=== PATIENT | male | born 1975 | race Caucasian/White ===

== ENCOUNTER 2022-03-31 08:55 | Inpatient (IN) | payer OTHER, SELFPAY ==
[2022-03-31] VITALS (19 sets, daily range): BP systolic 96–159; BP diastolic 66–103; PULSE 62–110; RESP 16–18; TEMP 36.3–36.8; O2SAT 96–100; BMI 32.4; BMI 32.3
--- NOTE | 2022-03-31 09:42 | EKG12_ITS ---
Test Reason : GEN ILLNESS Blood Pressure : / mmHG Vent. Rate : 074 BPM Atrial Rate : 074 BPM P-R Int : 178 ms QRS Dur : 084 ms QT Int : 390 ms P-R-T Axes : 058 030 104 degrees QTc Int : 432 ms Sinus rhythm with marked sinus arrhythmia ST & T wave abnormality, consider lateral ischemia Abnormal ECG Confirmed by HAIDER DOWD, KAELA ([id number]), desk editor MAXI SIMMONS ([id number]) on 04/03/2022 10:03:43 A M Referred By: LUCIE Confirmed By:STNALEY MALONEY MD
--- NOTE | 2022-03-31 09:55 | RAD_ITS ---
STUDY: X-RAY CHEST REASON FOR EXAM: Male, 47 years old. Chest pain TECHNIQUE: Single AP portable view of the chest. COMPARISON: None. FINDINGS: EKG electrodes are seen. The lungs are clear and expanded. There is no demonstrated pleural abnormality. Normal size heart. Normal mediastinum and elsa. Normal visualized pulmonary arteries. Normal visualized aortic arch and descending thoracic aorta. Normal visualized thoracic spine. Normal visualized ribs, clavicles, and shoulders. There is no demonstrated abnormality of the visualized soft tissue structures of the upper abdomen. RAD/Chest 1 View (Portable) IMPRESSION: Normal x-ray examination of the chest. Electronically Signed: Morgan Oliva MD at 10:09 EDT ,
[2022-03-31 10:03] LABS: Absolute Lymphocyte Count 0.82 X10^3/uL (0.83-4.51); Absolute Neutrophil Count 5.5 X10^3/uL (2.0-7.7); Basophil# 0.04 X10^3/uL; Basophil% 0.6 % (0-1); Eosinophil# 0.09 X10^3/uL; Eosinophils% 1.3 % (0-5); Hematocrit 45.7 % (40-54); Hemoglobin 15.5 g/dL (13.0-16.5); Lymphocyte # 0.82 X10^3/ul (0.83-4.51); Lymphocyte % 11.9 % (19-41); Mean Corp Hgb Conc 33.9 g/dL (32-36); Mean Corpuscular Hgb 28.8 pg (27.0-32.0); Mean Corpuscular Volume 84.9 fL (80-94); Mean Platelet Vol. 10.2 fl (6.2-12.0); Monocyte# 0.39 X10^3/uL; Monocyte% 5.7 % (0-10); NRBC Flagged by Analyzer 0 % (0-5); Neutrophil % 80.1 % (47-70); Platelet Count 196 K/mm3 (150-450); RBC Distribution Width CV 13.2 % (11.6-14.6); Red Blood Count 5.38 M/mm3 (4.6-6.2); White Blood Count 6.9 K/mm3 (4.4-11.0)
[2022-03-31 10:20] LABS: Anion Gap 6 (5-15); BUN 12 mg/dL (7-18); BUN/Creat Ratio 13.3 RATIO (10-20); Calcium,Total 8.8 mg/dL (8.5-10.1); Chloride 106 mmol/L (98-107); EST Glomerular Filtration Rate 96 mL/min (>60); Est Glom Filt Rate - Afr Amer 116 mL/min (>60); Estimated Creatinine Clearance 111.37 ml/min; Glucose 122 mg/dL (74-106); Potassium 3.6 mmol/L (3.5-5.1); Sodium Level 138 mmol/L (136-145); Troponin-I HS (w/2H Reflex) 402 pg/mL (3.0-78.0)
--- NOTE | 2022-03-31 10:29 | PCM.HP.STD ---
[facility] - General General Date of Admission: 03/31/22 Date of Service: 03/31/22 Chief Complaint: Bilateral jaw pain HPI Narrative ELISABETH AGOSTO, is a 47 M who presents bilateral jaw pain. Patient past medical history is significant for hypertension chronic degenerative joint disease involving the TN joint, dyslipidemia and tobacco dependence (patient chews) who presented with jaw pain. Patient symptoms began on the morning of his admission. In addition to jaw pain he did experience chest discomfort as well as bilateral lower extremity pain. He initially felt symptoms were secondary to his TM joint osteoarthritis however in view of the persistent nature of his symptoms he presented to the ED. In the emergency department EKG obtained did not demonstrate ischemia in the lateral leads. His first set of troponin came back with 402. An assessment of acute non-STEMI made started on heparin with consultation placed to cardiology from the ED and patient admitted to monitored bed for subsequent management [facility] Medical History (Updated 03/31/22 @ 11:[address] Sancho Ovalles MD) Hypertension Home Medications lisinopril 20 mg PO DAILY 08/10/15 [History Last Taken Unknown] pravastatin 80 mg PO DAILY 08/10/15 [History Last Taken Unknown] amlodipine 5 mg PO DAILY 03/31/22 [History Last Taken Unknown] Allergy/AdvReac Type Severity Reaction Status Date / Time No Known Allergies Allergy Verified 01/14/16 21:18 Family History (Updated 03/31/22 @ 11:[address] Sancho Ovalles MD) Father CAD (coronary artery disease) Social History Smoking Status: Never smoker ROS ROS Narrative GENERAL: denies fever, chills, night sweats, weight loss, anorexia HEENT: denies headache, sinus congestion, or drainage, dysphagia RESPIRATORY: denies cough, sputum production, shortness of breath, CARDIAC: chest pain, palpitations, orthopnea, PND GASTROINTESTINAL: denies abdominal pain, nausea, vomiting, melena, GENITOURINARY: denies dysuria, urgency, frequency, heamaturia EXTREMITY: denies swelling MUSCULOSKELETAL: denies current joint pain or tenderness NEUROLOGIC: denies focal numbness, weakness, tingling HEMATOLOGIC: denies easy bruising and/or hemorrhage INTEGUMENT: denies rashes PSYCHIATRIC: denies suicidal or homicidal ideation Vital Signs Vital Signs Vital Signs: 03/31/22 08:55 03/31/22 09:25 03/31/22 09:49 Temperature 97.8 F Temperature Source Temporal Pulse Rate 89 Respiratory Rate 16 Respiratory Effort Normal Non-Labored Blood Pressure 159/103 H Blood Pressure Mean 121 Pulse Ox 97 100 Oxygen Delivery Method Room Air Room Air Weight Weight: 108.409 kg Body Mass Index (BMI) 32.4 Physical Exam Narrative GENERAL: cooperative HEENT: Atraumatic; EYES; Anicteric, Normal Conjunctiva NECK; supple, normal thyroid, RESPIRATORY: Diminished to auscultation CARDIOVASCULAR: Regular S1 S2, GI: soft, normoactive bowel sounds, : No Renal angle tenderness; EXTREMITIES: No edema, no clubbing, MUSCULOSKELETAL: no muscle wasting NEURO: Awake; no lateralizing signs. SKIN: No Rash PSYCH; Flat affect Results Lab / Micro Data Result Diagrams: 03/31/22 09:50 03/31/22 09:50 Labs: Laboratory Results - last 24 hr 03/31/22 09:50: WBC 6.9, RBC 5.38, Hgb 15.5, Hct 45.7, MCV 84.9, MCH 28.8, MCHC 33.9, RDW Std Deviation 41.0, RDW Coeff of Nadege 13.2, Plt Count 196, MPV 10.2, Immature Gran % (Auto) 0.400, Neut % (Auto) 80.1 H, Lymph % (Auto) 11.9 L, [place] % (Auto) 5.7, Eos % (Auto) 1.3, Baso % (Auto) 0.6, Absolute Neuts (auto) 5.5, Absolute Lymphs (auto) 0.82 L, Nucleated RBC % 0 03/31/22 09:50: Sodium 138, Potassium 3.6, Chloride 106, Carbon Dioxide 26.0, Anion Gap 6, BUN 12, Creatinine 0.90, Estim Creat Clear Calc 111.37, Est GFR (MDRD) Af Amer 116, Est GFR (MDRD) Non-Af 96, BUN/Creatinine Ratio 13.3, Glucose 122 H, Calcium 8.8, Troponin I High Sens 402 H* Radiology Impression Chest X-Ray 03/31/22 09:55 IMPRESSION: Normal x-ray examination of the chest. Electronically Signed: Morgan Oliva MD at 10:09 EDT , Assessment & Plan Assessment/Plan (1) NSTEMI, initial episode of care: PLAN: Patient is a 47-year-old gentleman presenting with bilateral jaw pain had elevated troponin consistent with acute non-STEMI 1. Acute non-STEMI ? Patient has been admitted to a monitored bed treatment initiated with beta-blockers aspirin statin therapy as well as heparin. Cardiology Dr. Vazquez was notified by Dr. Schulte from the ED. Plan is for patient to be kept n.p.o. with possible left heart catheterization later this afternoon. In the meantime serial cardiac enzymes ordered for monitoring. Repeat EKG also ordered in 3 hours. Also ordered 2D echo to assess for regional wall motion abnormalities 2. Hypertension - Blood pressure blood pressure on admission was elevated at 159/103. Did continue with home meds with and added metoprolol 25 mg p.o. twice daily subsequent monitoring with every 6 vitals ordered 3. Dyslipidemia -Patient is on statin therapy, continued 4. Class I obesity with BMI of 32.4 ? Weight loss advised 5. Tobacco dependence (patient chews) -patient was counseled on cessation 6. DVT prophylaxis ? Placed on heparin Charges/Coding Visit Charges Inpatient E&M: 81511 Init Hosp L3
--- NOTE | 2022-03-31 10:36 | ECHOCS_ITS ---
Reason For Study: s/p OR Procedure This was a 2D Doppler, Color Flow transthoracic echocardiogram. Contrast injection was performed. Exam performed portable in ED. Left Ventricle Normal LV size. The estimated ejection fraction is 60 %. No evidence for diastolic dysfunction. Infero-Basal: Hypokinetic. Right Ventricle Normal RV size. Normal systolic function. Atria Normal left atrium. Normal right atrium. No doppler evidence for ASD. Mitral Valve There is no mitral valve stenosis. Trivial mitral valve insufficiency. Tricuspid Valve There is no tricuspid stenosis. Trivial tricuspid valve insufficiency. Pulmonary artery systolic pressure is 25-30 mmHg. Aortic Valve Trisinus/trileaflet aortic valve. There is no aortic stenosis. No aortic valve insufficiency. Pulmonic Valve There is no pulmonic valvular stenosis. No pulmonic valve insufficiency. Great Vessels Normal aortic root. Pericardium/Pleural No pericardial effusion. Medication Diluted definity 3ml given slow IV push to enhance endocardial definition. MMode/2D Measurements & Calculations LVIDd: 4.8 cm IVSd: 1.2 cm Ao root diam: 3.0 cm LVIDs: 3.1 cm LVPWd: 1.3 cm RVDd: 3.5 cm FS: 34.7 % LAV(MOD-bp): 43.5 ml LVAd ap4: 27.8 cm2 SV(MOD-sp4): 49.7 ml LAV(MOD-bp) Indexed: 18.9 ml/m2 LVLd ap4: 8.6 cm LAV(MOD-sp2): 42.2 ml EDV(MOD-sp4): 74.7 ml LAV(MOD-sp4): 43.0 ml EDV(sp4-el): 76.8 ml LVAs ap4: 14.2 cm2 LVLs ap4: 6.8 cm ESV(MOD-sp4): 25.0 ml ESV(sp4-el): 25.3 ml EF(MOD-sp4): 66.6 % EF(sp4-el): 67.1 % SV(sp4-el): 51.5 ml LA A4 area: 17.9 cm2 LA dimension(2D): 3.9 cm RA A4 area: 13.6 cm2 Doppler Measurements & Calculations MV E max jose alfredo: 78.9 cm/sec Lat Peak E' Jose Alfrdeo: 11.6 cm/sec Med Peak E' Jose Alfredo: 9.0 cm/sec MV A max jose alfredo: 85.7 cm/sec E/E' lat: 6.8 E/E' med: 8.7 MV E/A: 0.92 Ao V2 max: 118.5 cm/sec LV V1 max: 104.0 cm/sec PA V2 max: 102.7 cm/sec Ao max P.6 mmHg LV V1 max P.3 mmHg Ao V2 mean: 84.0 cm/sec Ao mean P.1 mmHg Ao V2 VTI: 21.3 cm TR max jose alfredo: 243.1 cm/sec TR max P.6 mmHg ECHO/Echo Complete W/ Contrast Interpretation Summary The estimated ejection fraction is 60 %. No evidence for diastolic dysfunction. Infero-Basal: Hypokinetic Trivial mitral valve insufficiency. Ordering Physician: Sancho Ovalles Referring Physician: Ayanna Lentz Performed By: Kirsty Melvin, JOVANNA, RVT
--- NOTE | 2022-03-31 10:45 | PCM.CONS.C ---
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 Patient is chest pain-free at the end of the procedure. We will keep him on aspirin, Brilinta, statin and a beta-kristina. 2D echo has been done and will be reviewed. Patient is being admitted to the PCU for further management of his non-STEMI. HPI Consult Data Date of Consult: 03/31/22 HPI Narrative HPI Narrative: ELISABETH AGOSTO, is a 47 M who presents with jaw pain and chest pain. Patient's troponin was elevated. His jaw pain improved with nitroglycerin as well. Patient was diagnosed with non-STEMI and underwent coronary angiography which revealed 100% occlusion of the RCA. Review of systems: All systems reviewed. All else is negative except that in HPI PFSH Medical History Hypertension Home Medications lisinopril 20 mg PO DAILY 08/10/15 [History Last Taken Unknown] pravastatin 80 mg PO DAILY 08/10/15 [History Last Taken Unknown] amlodipine 5 mg PO DAILY 03/31/22 [History Last Taken Unknown] Allergy/AdvReac Type Severity Reaction Status Date / Time No Known Allergies Allergy Verified 01/14/16 21:18 Family History Father CAD (coronary artery disease) Social History Smoking Status: Never smoker Physical Exam Const alert and oriented x3 Orientation / Consciousness: awake HEENT normocephalic Eyes no scleral icterus Resp normal respiratory effort Cardio regular rate Skin no rashes or lesions noted Neuro oriented x3 Psych mental status grossly normal Risk Stratification Risk Stratification Applicable: No Charges/Coding Visit Charges Inpatient E&M: 77766 Init Hosp L2 Objective Data Vital Signs: Vital Signs Temp Pulse Resp BP Pulse Ox 97.8 F 89 16 159/103 H 100 03/31/22 08:55 03/31/22 08:55 03/31/22 08:55 03/31/22 08:55 03/31/22 09:49 Oxygen Delivery Method Room Air Weight: 239 lb Body Mass Index (BMI) 32.4 Lab / Micro Data Result Diagrams: 03/31/22 09:50 03/31/22 09:50 Labs: Laboratory Results - last 24 hr 03/31/22 09:50: WBC 6.9, RBC 5.38, Hgb 15.5, Hct 45.7, MCV 84.9, MCH 28.8, MCHC 33.9, RDW Std Deviation 41.0, RDW Coeff of Nadege 13.2, Plt Count 196, MPV 10.2, Immature Gran % (Auto) 0.400, Neut % (Auto) 80.1 H, Lymph % (Auto) 11.9 L, [place] % (Auto) 5.7, Eos % (Auto) 1.3, Baso % (Auto) 0.6, Absolute Neuts (auto) 5.5, Absolute Lymphs (auto) 0.82 L, Nucleated RBC % 0 03/31/22 09:50: Sodium 138, Potassium 3.6, Chloride 106, Carbon Dioxide 26.0, Anion Gap 6, BUN 12, Creatinine 0.90, Estim Creat Clear Calc 111.37, Est GFR (MDRD) Af Amer 116, Est GFR (MDRD) Non-Af 96, BUN/Creatinine Ratio 13.3, Glucose 122 H, Calcium 8.8, Troponin I High Sens 402 H* Cardiology Labs/Tests 03/31/22 09:50: WBC 6.9, RBC 5.38, Hgb 15.5, Hct 45.7, MCV 84.9, MCH 28.8, MCHC 33.9, Plt Count 196, MPV 10.2, Immature Gran % (Auto) 0.400, Neut % (Auto) 80.1 H, Lymph % (Auto) 11.9 L, [place] % (Auto) 5.7, Eos % (Auto) 1.3, Baso % (Auto) 0.6, Absolute Neuts (auto) 5.5, Nucleated RBC % 0 03/31/22 09:50: Sodium 138, Potassium 3.6, Chloride 106, Carbon Dioxide 26.0, Anion Gap 6, BUN 12, Creatinine 0.90, Est GFR (MDRD) Af Amer 116, Est GFR (MDRD) Non-Af 96, BUN/Creatinine Ratio 13.3, Glucose 122 H, Calcium 8.8 Rhythm: EKG: ECHO: Stress Test: Cardiac Cath: PCI: CT Surgery: Holter monitor: EPS: PPM: CXR: Chest CT Scan: Radiography Diagnostic Testing: Radiology Impression Chest X-Ray 03/31/22 09:55 IMPRESSION: Normal x-ray examination of the chest. Electronically Signed: Morgan Oliva MD at 10:09 EDT ,
[2022-03-31] MEDS: Aspirin 81 MG TAB.CHEW 324 MG PO (10:50)
--- NOTE | 2022-03-31 11:11 | ED.VIS.CHEST ---
HPI History of Present Illness Chief Complaint: General Illness Narrative Narrative: 47-year-old male presenting with chronic jaw pain. He states that he has TMJ and bruxism and typically has pain is controlled by ibuprofen. Last evening he noticed that he had some pain worsening his bilateral jaws. He took Motrin and this did improve. This morning he woke up and he is not sure if he woke up because his child had an accident in the bed or if it was his pain but he had exquisite pain in the jaw and then stated started radiating to his chest and bilateral arms. Now it is more in the left arm. The chest pain has resolved but the jaw pain is still present. He denies shortness of breath, lightheadedness. He has been otherwise healthy prior to this. He has a history of hypertension and hyperlipidemia. No cardiac history. No DVT/PE risk factors. [facility] Medical History Hypertension Home Medications lisinopril 20 mg PO DAILY 08/10/15 [History Last Taken Unknown] pravastatin 80 mg PO DAILY 08/10/15 [History Last Taken Unknown] amlodipine 5 mg PO DAILY 03/31/22 [History Last Taken Unknown] Allergy/AdvReac Type Severity Reaction Status Date / Time No Known Allergies Allergy Verified 01/14/16 21:18 Family History Father CAD (coronary artery disease) Social History Smoking Status: Never smoker [facility] ED Constitutional Constitutional ED: Denies chills, fever(s) or sweats Eyes Eyes: Denies blurry vision or change in vision ENT ENT ED: Reports other Details: Bilateral jaw pain ; Denies ear pain or sore throat Cardiovascular Cardiovascular: Reports chest pain; Denies palpitations or racing heartbeat Respiratory/Chest Respiratory/Chest: Denies cough, dyspnea or sputum Gastrointestinal Gastrointestinal: Denies abdominal pain, constipation, diarrhea, nausea or vomiting Genitourinary Genitourinary ED: Denies dysuria, hematuria or urinary frequency Musculoskeletal Musculoskeletal: Reports other Details: Bilateral arm pain ; Denies arthralgias or neck pain Integumentary Denies abscess, Abrasions or rash Neurologic Neurologic: Denies headache(s), paresthesias or weakness Psychiatric Psychiatric: Denies anxiety, depression, suicidal ideation or suicidal thoughts Endocrine Endocrinology: Denies polydipsia or polyuria EXAM Physical Exam Const Vital Signs: 03/31/22 08:55 03/31/22 09:25 03/31/22 09:49 Temperature 97.8 F Temperature Source Temporal Pulse Rate 89 Respiratory Rate 16 Respiratory Effort Normal Non-Labored Blood Pressure 159/103 H Blood Pressure Mean 121 Pulse Ox 97 100 Oxygen Delivery Method Room Air Room Air Positive well nourished General Appearance ED: NAD HEENT Reports moist mucous membranes HEENT Narrative: No tenderness over the temples bilaterally. No jaw malocclusion. No tenderness palpation of the bilateral angle of the mandible's. Neck supple without lymphadenopathy. normocephalic and atraumatic Eyes PERRL and EOMs intact bilaterally Neck no lymphadenopathy and supple Resp normal respiratory effort Effort and Inspection: respiratory distress Cardio regular rate and regular rhythm Extremity normal to inspection General Extremety ED: Negative for edema or tenderness General Extremity: Negative for edema Neuro oriented x3 Sensorium / Orientation: awake and alert Motor Exam: strength 5/5 throughout Psych mental status grossly normal Skin no rashes or lesions noted and no wounds Heart Score History: Moderately Suspicious ECG: Normal Age: >45 - <65 years Risk Factors: >/= 3 Risk Factors or History of CAD Troponin: >/=3 x Normal Limit Score: 6 MDM MDM MDM Narrative Medical decision making narrative: Patient presenting with jaw pain that he thought was his TMJ but states it radiated into his chest and he had discomfort in bilateral arms as well. Currently his chest pain is resolved but he still has jaw pain. He states he got better with ibuprofen this morning and declines anything for pain initially. I obtained an EKG and on my interpretation this was a sinus rhythm with a ventricular rate of 74 bpm with slight elevation of the ST wave in lead III and T wave inversion/mild depressions in 1 and aVL. This does not meet STEMI criteria. This was discussed with Dr. Vazquez who agrees. CBC and BMP unremarkable. High-sensitivity troponin came back at 402. Chest x-ray on my interpretation shows no acute cardiopulmonary process and the radiologist does agree. I discussed case with Dr. Vazquez who will likely do cardiac catheterization based on the EKG and cardiac enzymes at some point today. This was also discussed with the hospitalist for admission. Patient was given nitroglycerin for pain. 224 of aspirin was also given. Patient transferred to the floor in stable condition. Impression: 1. NSTEMI 2. Jaw pain 3. Chest pain Lab Data Labs: Laboratory Results - last 24 hr 03/31/22 03/31/22 09:50 09:50 WBC 6.9 RBC 5.38 Hgb 15.5 Hct 45.7 MCV 84.9 MCH 28.8 MCHC 33.9 RDW Std Deviation 41.0 RDW Coeff of Nadege 13.2 Plt Count 196 MPV 10.2 Immature Gran % (Auto) 0.400 Neut % (Auto) 80.1 H Lymph % (Auto) 11.9 L [place] % (Auto) 5.7 Eos % (Auto) 1.3 Baso % (Auto) 0.6 Absolute Neuts (auto) 5.5 Absolute Lymphs (auto) 0.82 L Nucleated RBC % 0 Sodium 138 Potassium 3.6 Chloride 106 Carbon Dioxide 26.0 Anion Gap 6 BUN 12 Creatinine 0.90 Estim Creat Clear Calc 111.37 Est GFR (MDRD) Af Amer 116 Est GFR (MDRD) Non-Af 96 BUN/Creatinine Ratio 13.3 Glucose 122 H Calcium 8.8 Troponin I High Sens 402 H* Radiography Diagnostic Testing: Clinical Impression(s) from Imaging Studies Chest X-Ray 03/31/22 09:55 IMPRESSION: Normal x-ray examination of the chest. Electronically Signed: Morgan Oliva MD at 10:09 EDT , Discharge Plan Triage Chief Complaint: General Illness ED Provider: Gamaliel Schulte Dx/Rx/DC Orders Prescriptions: No Action lisinopril 20 MG tablet 20 mg PO DAILY RF: 0 pravastatin 80 MG tablet 80 mg PO DAILY RF: 0 amlodipine 5 mg tablet 5 mg PO DAILY RF: 0 Primary Care Provider: Ayanna Lentz
--- NOTE | 2022-03-31 11:21 | CASEMGMT ---
According to the [employer] website, the following are in-network tertiary facilities: [facility], [place], [facility], [facility], [facility], [facility], [facility], [facility], [facility], and . Pete FARRIS CM
[2022-03-31] MEDS: Heparin Injection (Vial) 5,000 UNIT/ML VIAL 4000 UNIT IV (11:30)
[2022-03-31] MEDS: HEPARIN/D5w 25,000 UNITS 25,000 UNITS/250 ML IV.SOLN. 0.1 UNITS CONT INF (11:40)
[2022-03-31 11:49] LABS: International Normalized Ratio 1.2; Prothrombin Time (Protime)PT. 14.9 SECONDS (11.7-14.9)
[2022-03-31 11:50] LABS: Partial Thromboplast Time 32.4 Seconds (24.1-36.2)
[2022-03-31 11:54] LABS: Reflex Troponin-HS? (from REC) Y
--- NOTE | 2022-03-31 12:11 | NURSING ---
scanned heprain and badge. looked later and med not registering on jan. recharted. unable to scan at ths time.
--- NOTE | 2022-03-31 12:12 | ED.RN ---
education and updates givein. questions answered. to director of cath lab at this time
[2022-03-31 13:23] LABS: Troponin-I HS 3246 pg/mL (3.0-78.0)
--- NOTE | 2022-03-31 14:00 | EKG12_ITS ---
Test Reason : AM EKG Blood Pressure : / mmHG Vent. Rate : 074 BPM Atrial Rate : 074 BPM P-R Int : 184 ms QRS Dur : 090 ms QT Int : 396 ms P-R-T Axes : 063 -10 041 degrees QTc Int : 439 ms Normal sinus rhythm Inferior infarct , age undetermined Abnormal ECG When compared with ECG of 01-APR-2022 05:04, MANUAL COMPARISON REQUIRED, DATA IS UNCONFIRMED Confirmed by CAROLE DOWD, ANDREY ([id number]), editor book MAXI SIMMONS ([id number]) on 04/03/2022 12:55:07 PM Referred By: DALE Confirmed By:ANDREY LAM MD
[2022-03-31] MEDS: Lisinopril 20 MG Tablet PO (14:13)
[2022-03-31] MEDS: Metoprolol Tartrate 25 MG Tablet PO ×2 (14:13→21:39)
[2022-03-31] MEDS: amLODIPine 5 MG Tablet PO (14:13)
[2022-03-31] MEDS: 0.9% Normal Saline 1,000 ML 75 ML IV (14:17)
--- NOTE | 2022-03-31 14:36 | CRPHASE1_ITS ---
Patient Communication PHII Cardiac Rehab Discussed with Patient:: Yes Guide to Cardiac Rehab Given to Patient:: Yes Cardiac Rehab Facility Choice List Given to Patient:: Yes Choice Program [facility] CR PHII:: Communication Given to CR Choice Program Other:: Communication Given to CR Urologic Surgeon:: Kishore Vazquez Refer Phase II Cardiac Rehab:: Yes Cardiac Rehabilitation Info Cardiac Rehabilitation Program Information: Cardiac Rehabilitation is important for patients like you who are recovering from a heart problem. Cardiac rehabilitation programs are recognized as integral to the continued care of the patient with coronary heart disease. The cardiac rehabilitation program is designed to optimize a patient's physical, psychological, and social functioning. Health director of managed care work in cardiac rehabilitation programs and assist you with getting the treatments you need to get stronger and healthier - like exercise, healthy eating habits, and medications. Cardiac rehabilitation has been show to help people with heart problems live longer and have better life enjoyment than people who do not go to cardiac rehabilitation. Please contact the Cardiac Rehabilitation Program at [facility] at in two weeks if you have not heard from them.
--- NOTE | 2022-03-31 14:36 | CRPH1.INSTRU ---
General Education CAD and cardiac anatomy and function:: Patient communicates acknowledgment Explanation of diagnoses and procedures:: Patient communicates acknowledgment Sign/Symptoms of SD:: Patient communicates acknowledgment Antiplatelet therapy: Patient communicates acknowledgment Smoking Patient Nicotine/Smoking Risk Factors Are:: Non-smoker Dyslipidemia Patient Dyslipidemia Risk Factors Are:: Total Cholesterol, Triglycerides, HDL, LDL Recommendations Include:: Lipid profile provided, Reviewed NCEP/ATP guidelines, Therapeutic Lifestyle Change dietary guidelines Dyslipidemia Response Code:: Patient communicates acknowledgment Overweight/Obesity Patient Overweight/Obesity Risk Factors Are:: Obesity - > or = 30 Recommendations Include:: Weight loss of 5-10%, Reduced calorie diet, Exercise 5-7 times/week Overweight/Obesity:: Patient communicates acknowledgment Hypertension Recommendations Include:: Maintain BP <130/85, DASH dietary guidelines, Decrease/maintain normal body weight, Moderation of ETOH Hypertension:: Patient communicates acknowledgment Diabetes Patient Diabetes Risk Factors Are:: No documented hx of diabetes Metabolic Syndrome Patient Metabolic Syndrome Risk Factors Are [3 of 5]:: Fasting blood sugar > 100 mg/dL, Waist circumference > 35 [female] or 40 [male], High triglyceride >150, Hypertension, Low HDL <40 [male] or < 50 [female] Recommendations Include:: Reinforce compliance to risk factor modifications, Encouraged follow-up with Primary Care Physician Metabolic Syndrome Response Code:: Patient communicates acknowledgment Sedentary Patient Sedentary Risk Factors Are:: Lack of regular exercise Recommendations Include:: Aerobic exercise 5-7 times/week for 20-30 minutes continuously, Benefits of regular exercise, Discussed home walking program, Monitored Outpatient Cardiac Rehab Sedentary Response Code:: Patient communicates acknowledgment Stress Patient Stress Risk Factors Are:: Patient denies stress as a risk factor Recommendations Include:: Stress management techniques Stress Response Code:: Patient communicates acknowledgment
--- NOTE | 2022-03-31 14:50 | CL.I_ITS ---
Patient Name: ELISABETH AGOSTO Study Date: 03/31/2022 Performing: Torito Vazquez MD Ht: 72 inches 183 cm : 1975 Wt: 238.4 lbs 108 kg Age: 47 Gender: male BSA: 2.3 PROCEDURE(S) PERFORMED DC02-(83391)LHC/COR IC12-(42157/C9600)ISABELLE W/WO PTCA, SINGLE CORONARY ARTERY CLINICAL PROFILE AND CO-MORBIDITIES Indications: ACS <= 24 hrs Heart Failure: None Stress/Imaging Stress/Image Study Performed: No CAD Presentations: Non-STEMI. Symptom onset Date/Time: Time Not Available CONCLUSIONS CAD as described. Successful thrombectomy and drug-eluting stent placement to mid RCA as described. RECOMMENDATIONS DESCRIPTION OF PROCEDURE The patient arrived to the procedure lab. The risks and benefits of the procedure as well as a full d escription of our services here and lack of surgical backup were fully explained to the patient and/o r their significant other prior to the catheterization. The Timeout was completed, verifying the callum ect patient and procedure. The patient's procedural site was prepped and draped in the usual fashion. Local anesthetic was given subcutaneously to right radial region with Lidocaine 2%. Using a modified Seldinger technique, arterial access was obtained via the right radial artery, a 6Fr sheath was inse rted.. Right Coronary Artery selective angiography was then performed in multiple views using a 5 Fr . JR 4 catheterThe images were reviewed and options discussed. A decision was then made to proceed wi th an Intervention, IVUS or other adjunct procedure. JR 4.0 Guide catheter was inserted and engaged into the RCA. Priority One inserted Pass # 1 Prior ity One Removed Emerge 3.0x12 Balloon catheter was inserted. PTCA balloon inflated at 6 atms for 5 se cs. PTCA balloon inflated at 6 atms for 5 secs. PTCA balloon inflated at 10 atms for 17 secs. Angiogr am performed post balloon dilatation. Orsiro 3.5x26 Drug Eluting stent was inserted. Angiogram perfor med post stent deployment. The arterial sheath was pulled and a TR Band was applied for hemostasis w/ 9ml air CORONARY ANGIOGRAPHY DOMINANCE: Right Dominant LEFT HEART ASSESSMENT Left Ventricular Ejection Fraction: by Echo 60 % LEFT MAIN: Mild luminal irregularities LEFT ANTERIOR DESCENDING ARTERY: PROX LAD: 50-60 % Stenosis MID LAD: 30 % Stenosis CIRCUMFLEX ARTERY: Mild luminal irregularities RIGHT CORONARY ARTERY: MID RCA: 100 % Stenosis VALVE FINDINGS: No Aortic Valve Stenosis INTERVENTION INFORMATION LESION SITE: RCA (Mid) Lesion Complexity: High/C, chronic total occlusion: No, lesion at bifurcation: No, thrombus present: Yes, lesion length: 24 mm, culprit lesion: Yes, Previously treated lesion: No Pre Stenosis: 100 % Pre intervention MIKE flow: 0 PROCEDURE: Thrombectomy, Drug Eluting Stent with pre dilatation. Post Stenosis: 0 % Post intervention MIKE flow: 3 Lesion Devices: Garcia .014 BMW [place] Straight 190cm Medtronic 6 Fr JR4.0 100cm Guide Catheter Terumo Priority One Aspiration Catheter Fab Sci EMERGE MR 3.00x12 BALLOON Biotronik Orsiro Savage MR ISABELLE 3.5x26 COMPLICATIONS No Complications PROCEDURE MEDICATIONS Versed 1 mg IV Fentanyl 50 mcg IV Oxygen: 2 L/min via nasal cannula Brilinta 180 mg PO 03/31/2022 12:58:15 Atropine 1mg/10ml 0.5 amp @ 03/31/2022 13:09:12 Heparin given IA 03/31/2022 12:48:52 Nitro 100 mcg IC 03/31/2022 13:16:45 Verapamil 2.5mg, Ntg 100mcgs, 3000 units of Heparin given IA 03/31/2022 12:48:52 IV Bolus: .9 NaCl 400ml total 03/31/2022 13:06:41 SUMMARY OF HEMODYNAMIC DATA Time AIR REST ECG 12:28:08 LV 114/8, 9 12:51:33 LV 111/8, 9 12:51:41 LVp 113/9, 13 12:51:54 AOp 115/96 (107) 12:52:01 AO 116/87 (105) SA 12:52:17 AO 67/36 (45) 13:07:03 AO 90/66 (76) 13:14:45 Signed By Torito Vazquez MD On 03/31/2022 14:49:10 Torito Vazquez MD
--- NOTE | 2022-03-31 14:54 | CASEMGMT ---
BRENTON ANTUNEZ assessment: Face to Face with patient for initial transition planning/care coordination assessment. BRENTON ANTUNEZ introduced self and role at [facility], pt voices understanding and consents to assessment. Pt is sitting up in bed in no distress on room air. Pt is A/Ox4 and answers all questions appropriately. Pt's is at bedside during assessment. Care providers, pharmacy, and demographics verified. Presentation: Pt c/o pain to bilat jaw, arms and shoulder that started last night, persistent-pt states it woke him from sleep Admitting dx: NSTEMI PCP: Mary Carmen Specialists: None Preferred Pharmacy: [facility]-pt started on brilinta and provided Brilinta co-pay card with instructions Insurance: [employer] Prescription Benefit: C[employer]a Living Will/HPOA: Pt does not have LW/HPOA and declines AD info. LNOK: Mecca Ladd, Living Arrangements: Pt lives with in ranch home with finished basement and states no concerns at home. Pt is independent with ADL's. Transportation: Pt drives self and states no transportation concerns. DME/HHC: Pt states no DME at home or need for any DME. Pt states no hx of HHC or SNF. Pt states no concerns with going home at time of discharge. Pt is self-employed and works multimedia artist. Pt states does not smoke cigarettes and rarely drinks ETOH. Pt states no further concerns/needs. CM to follow for any further discharge planning/needs. Advised pt to ask for CM if any further questions/concerns/needs arise, voices understanding. Pt Goal: Home Plan: [place] BRENTON ANTUNEZ
[2022-03-31 19:56] LABS: Magnesium 2.2 mg/dL (1.6-2.6)
[2022-03-31] MEDS: TICAGRELOR 90 MG TABLET PO (21:35)
[2022-03-31] MEDS: Atorvastatin Calcium 80 MG Tablet PO (21:35)
[2022-03-31] MEDS: 0.9% Saline Lock 10 ML Syringe IV (21:39)
[2022-04-01] VITALS (18 sets, daily range): BP systolic 93–123; BP diastolic 65–89; PULSE 66–85; RESP 14–20; TEMP 36.8–37.1; O2SAT 95–100
[2022-04-01 06:36] LABS: Absolute Lymphocyte Count 1.68 X10^3/uL (0.83-4.51); Absolute Neutrophil Count 6.7 X10^3/uL (2.0-7.7); Basophil# 0.03 X10^3/uL; Basophil% 0.3 % (0-1); Eosinophil# 0.14 X10^3/uL; Eosinophils% 1.5 % (0-5); Hematocrit 40.4 % (40-54); Hemoglobin 13.3 g/dL (13.0-16.5); Lymphocyte # 1.68 X10^3/ul (0.83-4.51); Lymphocyte % 18.2 % (19-41); Mean Corp Hgb Conc 32.9 g/dL (32-36); Mean Corpuscular Hgb 28.3 pg (27.0-32.0); Mean Platelet Vol. 10.9 fl (6.2-12.0); Monocyte# 0.67 X10^3/uL; Monocyte% 7.3 % (0-10); NRBC Flagged by Analyzer 0 % (0-5); Neutrophil # 6.67 X10^3/uL (2.7-7.7); Neutrophil % 72.3 % (47-70); Platelet Count 206 K/mm3 (150-450); RBC Distribution Width CV 13.6 % (11.6-14.6); RBC Distribution Width SD 42.6 fl (35.1-43.9); White Blood Count 9.2 K/mm3 (4.4-11.0)
[2022-04-01 07:04] LABS: ALB/GLOB Ratio 0.9 RATIO (0.9-2.4); AST(SGOT) 285 U/L (15-37); Alanine Aminotransfer ALT/SGPT 58 U/L (16-61); Alkaline Phosphatase 60 U/L (45-117); Anion Gap 7 (5-15); BUN 15 mg/dL (7-18); BUN/Creat Ratio 13.9 RATIO (10-20); Calcium,Total 8.6 mg/dL (8.5-10.1); Chloride 111 mmol/L (98-107); Cholesterol 146 mg/dL (200); Creatinine, Serum 1.08 mg/dL (0.70-1.30); EST Glomerular Filtration Rate 78 mL/min (>60); Est Glom Filt Rate - Afr Amer 94 mL/min (>60); Estimated Creatinine Clearance 92.81 ml/min; Globulin 3.4 g/dL (2.2-4.2); Glucose 123 mg/dL (74-106); High Density Lipoprotein 35 mg/dL; Potassium 3.3 mmol/L (3.5-5.1); Protein, Total 6.4 g/dL (6.4-8.2); Sodium Level 142 mmol/L (136-145); Triglycerides 136 mg/dL; Very Low Density Lipoprotein 27 mg/dL (5-40)
--- NOTE | 2022-04-01 07:04 | PN.HOSP_ITS ---
Subjective Subjective Patient with no acute events per self overnight and denies any further chest discomfort or any dyspnea. On the monitor however patient has had notable VT runs including nearly 60 beat this a.m. although remained asymptomatic. Discussed concerns with patient and noted intention to initiate on amiodarone bolus and drip. Also relayed this to cardiology who was amenable and will evaluate today as well. Patient denies fevers, chills, nausea, emesis, abdominal pain, chest pain or dyspnea. Objective Data Objective Data Vital Signs: Vital Signs Temp Pulse Resp BP Pulse Ox 98.8 F 67 18 95/65 98 04/01/22 04:00 04/01/22 04:00 04/01/22 04:00 04/01/22 04:00 04/01/22 04:00 Oxygen Delivery Method Room Air Weight: 238 lb 15.697 oz Body Mass Index (BMI) 32.3 Intake & Output: Intake and Output for Last 24 Hours 03/30/22 03/31/22 04/01/22 23:59 23:59 23:59 Intake Total 654.48 / 654.48 Balance 654.48 / 654.48 Lab / Micro Data Result Diagrams: 04/01/22 05:52 04/01/22 05:52 Labs: Laboratory Results - last 24 hr 03/31/22 09:50: WBC 6.9, RBC 5.38, Hgb 15.5, Hct 45.7, MCV 84.9, MCH 28.8, MCHC 33.9, RDW Std Deviation 41.0, RDW Coeff of Nadege 13.2, Plt Count 196, MPV 10.2, Immature Gran % (Auto) 0.400, Neut % (Auto) 80.1 H, Lymph % (Auto) 11.9 L, [place] % (Auto) 5.7, Eos % (Auto) 1.3, Baso % (Auto) 0.6, Absolute Neuts (auto) 5.5, Absolute Lymphs (auto) 0.82 L, Nucleated RBC % 0 03/31/22 09:50: Sodium 138, Potassium 3.6, Chloride 106, Carbon Dioxide 26.0, Anion Gap 6, BUN 12, Creatinine 0.90, Estim Creat Clear Calc 111.37, Est GFR (M DRD) Af Amer 116, Est GFR (MDRD) Non-Af 96, BUN/Creatinine Ratio 13.3, Glucose 122 H, Calcium 8.8, Troponin I High Sens 402 H* 03/31/22 09:50: PT 14.9, INR 1.2, APTT 32.4 03/31/22 12:47: Troponin I High Sens 3246 H* 03/31/22 12:47: Magnesium 2.2 04/01/22 05:52: WBC 9.2, RBC 4.70, Hgb 13.3, Hct 40.4, MCV 86.0, MCH 28.3, MCHC 32.9, RDW Std Deviation 42.6, RDW Coeff of Nadege 13.6, Plt Count 206, MPV 10.9, Immature Gran % (Auto) 0.400, Neut % (Auto) 72.3 H, Lymph % (Auto) 18.2 L, [place] % (Auto) 7.3, Eos % (Auto) 1.5, Baso % (Auto) 0.3, Absolute Neuts (auto) 6.7, Absolute Lymphs (auto) 1.68, Nucleated RBC % 0 Radiography Diagnostic Testing: Radiology Impression Chest X-Ray 03/31/22 09:55 IMPRESSION: Normal x-ray examination of the chest. Electronically Signed: Morgan Oliva MD at 10:09 EDT , Echocardiogram 03/31/22 10:36 Interpretation Summary The estimated ejection fraction is 60 %. No evidence for diastolic dysfunction. Infero-Basal: Hypokinetic Trivial mitral valve insufficiency. Ordering Physician: Sancho Ovalles Referring Physician: Ayanna Lentz Performed By: Kirsty Melvin, ANGELICACS, RVT Physical Exam Narrative Physical Examination: General: Awake, alert, oriented x 3 and cooperative, laying in the PCU bed, mildly fatigued otherwise denies any acute complaints, denies any recurrent chest discomfort Skin: Normal color, normal turgor, no icterus, no cyanosis. HEENT: AT/NC, EOMI, PERRLA, MMM. Lungs: CTA bilaterally, moderate effort, mild decrease BL bases, no rales, ronchi or wheezing. Heart: Currently regular rate and rhythm; no gallop, rub audible. Abdomen: Soft, obese, NTTP, ND, mildly hyperactive BS. Extremities: No cyanosis, clubbing, or edema. Neurological: Patient awake, alert, oriented as noted, cognitive function intact; pupils equally reactive to light and accommodation, cranial nerves II- XII grossly normal, moving all 4 extremities, no focal deficits, strength im proved, preserved. Psychiatric: Affect appears fatigued otherwise normal, no acute evidence of depressive or anxiety feelings. Assessment & Plan Assessment/Plan (1) NSTEMI, initial episode of care: PLAN: The patient is a 47 y/o M w/ PMHx: HTN, HLD, Obesity, Chew tobacco who presents to the [facility] ED on 03/31/22 with history of onset bilateral jaw discomfort in addition to chest discomfort with initially onset of discomfort in the TM joints however it persisted with eventual transition to his midsternal re gion prompting ED evaluation. #1. Chest Pain w/ Acute NSTEMI complicated by #2: EKG in ED w/ sinus rhythm with no acute evidence of ischemia, CXR w/ no acute cardiopulmonary finding, initial troponin 402. Patient admitted to the PCU, maintain on a monitored bed, serial enzymes obtained with initial 402--> 3246-->[], ECHO w/ EF 60%, no evidence of diastolic dysfunction, inferior basal hypokinesis, trivial MVI, Mag 2.2. Cardiology consulted and patient underwent 03/31/2022 cardiac catheterizatio n with noted coronary disease with successful thrombectomy and drug-eluting stent placement to the mid RCA. Continue medical management w/ asa, Brilinta, BB, statin per cardiology direction. #2. NSVT: Although patient did eventually return to sinus rhythm had significant bursts, will initiate amiodarone bolus and continue with drip following which cardiology is amenable, awaiting their reevaluation. Magnesium normal level. Supplementing potassium which was 3.3. #3. Hypokalemia: Admission K+ 3.3, magnesium level normal, supplementation given, repeat level in AM. #4. Hypertension: Continue home regimen including metoprolol, lisinopril, Norvasc with hold parameters as needed, PRN hydralazine. #5. Hyperlipidemia: High-dose atorvastatin added, FLP TG 136, T Chol 146, LDL 84, VLDL 27, HDL 35. #6. Obesity: Weight loss and lifestyle changes encouraged. #7. Chew tobacco: Will encourage tobacco cessation, NR if needed. #8. TAVO: We will continue CPAP nightly if patient amenable. #9. DVT prophylaxis: SCDs, heparin drip initiated upon initial presentation. Charges/Coding Visit Charges Inpatient E&M: 78522 Subs Hosp L3
[2022-04-01 08:13] LABS: Troponin-I HS 49140 pg/mL (3.0-78.0)
[2022-04-01] MEDS: TICAGRELOR 90 MG TABLET PO ×2 (09:06→22:19)
[2022-04-01] MEDS: Potassium Chloride Oral Tablet 20 MEQ 40 MEQ PO ×2 (09:06→12:22)
[2022-04-01] MEDS: Aspirin E.C. 81 MG Tablet PO (09:07)
--- NOTE | 2022-04-01 10:00 | EKG12_ITS ---
Test Reason : CP Blood Pressure : / mmHG Vent. Rate : 087 BPM Atrial Rate : 087 BPM P-R Int : 194 ms QRS Dur : 094 ms QT Int : 386 ms P-R-T Axes : 064 -11 093 degrees QTc Int : 464 ms Sinus rhythm with occasional Premature ventricular complexes Inferior infarct , age undetermined Abnormal ECG When compared with ECG of 31-MAR-2022 14:01, MANUAL COMPARISON REQUIRED, DATA IS UNCONFIRMED Confirmed by CAROLE DOWD, ANDREY ([id number]), brands editor MAXI SIMMONS ([id number]) on 04/03/2022 12:55:20 PM Referred By: LUCIE Confirmed By:ANDREY LAM MD
[2022-04-01] MEDS: 0.9% Saline Lock 10 ML Syringe IV ×2 (12:24→13:34)
--- NOTE | 2022-04-01 12:29 | PN.CARD_ITS ---
Subjective Subjective No significant cardiac symptoms. Patient had runs of nonsustained V. tach. His potassium was 3.3 and was replaced. Magnesium was 2.2. Objective Data Vital Signs: Vital Signs Temp Pulse Resp BP Pulse Ox 98.3 F 75 16 109/75 97 04/01/22 10:30 04/01/22 12:00 04/01/22 12:00 04/01/22 12:00 04/01/22 12:00 Oxygen Delivery Method Room Air Weight: 238 lb 15.697 oz Body Mass Index (BMI) 32.3 Intake & Output: Intake and Output for Last 24 Hours 03/30/22 03/31/22 04/01/22 23:59 23:59 23:59 Intake Total 654.48 / 654.48 198.47 / 198.47 Balance 654.48 / 654.48 198.47 / 198.47 Lab / Micro Data Result Diagrams: 04/01/22 05:52 04/01/22 05:52 Labs: Laboratory Results - last 24 hr 03/31/22 12:47: Troponin I High Sens 3246 H* 03/31/22 12:47: Magnesium 2.2 04/01/22 05:52: WBC 9.2, RBC 4.70, Hgb 13.3, Hct 40.4, MCV 86.0, MCH 28.3, MCHC 32.9, RDW Std Deviation 42.6, RDW Coeff of Nadege 13.6, Plt Count 206, MPV 10.9, Immature Gran % (Auto) 0.400, Neut % (Auto) 72.3 H, Lymph % (Auto) 18.2 L, [place] % (Auto) 7.3, Eos % (Auto) 1.5, Baso % (Auto) 0.3, Absolute Neuts (auto) 6.7, Absolute Lymphs (auto) 1.68, Nucleated RBC % 0 04/01/22 05:52: Sodium 142, Potassium 3.3 L, Chloride 111 H, Carbon Dioxide 24.0, Anion Gap 7, BUN 15, Creatinine 1.08, Estim Creat Clear Calc 92.81, Est GF R (MDRD) Af Amer 94, Est GFR (MDRD) Non-Af 78, BUN/Creatinine Ratio 13.9, Glucose 123 H, Calcium 8.6, Total Bilirubin 0.80, AST 285 H, ALT 58, Alkaline Ph osphatase 60, Total Protein 6.4, Albumin 3.0 L, Globulin 3.4, Albumin/Globulin Ratio 0.9, Triglycerides 136, Cholesterol 146, LDL Cholesterol 84, VLDL Cholesterol 27, HDL Cholesterol 35 L 04/01/22 07:25: Troponin I [place] Sens 63038 H* Cardiology Labs/Tests 03/31/22 12:47: Magnesium 2.2 04/01/22 05:52: WBC 9.2, RBC 4.70, Hgb 13.3, Hct 40.4, MCV 86.0, MCH 28.3, MCHC 32.9, Plt Count 206, MPV 10.9, Immature Gran % (Auto) 0.400, Neut % (Auto) 72.3 H, Lymph % (Auto) 18.2 L, [place] % (Auto) 7.3, Eos % (Auto) 1.5, Baso % (Auto) 0.3, Absolute Neuts (auto) 6.7, Nucleated RBC % 0 04/01/22 05:52: Sodium 142, Potassium 3.3 L, Chloride 111 H, Carbon Dioxide 24.0, Anion Gap 7, BUN 15, Creatinine 1.08, Est GFR (MDRD) Af Amer 94, Est GFR (MDRD) Non-Af 78, BUN/Creatinine Ratio 13.9, Glucose 123 H, Calcium 8.6, Total Bilirubin 0.80, Triglycerides 136, Cholesterol 146, LDL Cholesterol 84, VLDL Cholesterol 27, HDL Cholesterol 35 L Rhythm: EKG: ECHO: Stress Test: Cardiac Cath: PCI: CT Surgery: Holter monitor: EPS: PPM: CXR: Chest CT Scan: Radiography Diagnostic Testing: Radiology Impression Echocardiogram 03/31/22 10:36 Interpretation Summary The estimated ejection fraction is 60 %. No evidence for diastolic dysfunction. Infero-Basal: Hypokinetic Trivial mitral valve insufficiency. Ordering Physician: Sancho Ovalles Referring Physician: Ayanna Lentz Performed By: Kirsty Melvin, JOVANNA, RVT Physical Exam Const alert and oriented x3 Orientation / Consciousness: awake HEENT normocephalic Eyes no scleral icterus Resp normal respiratory effort Assessment & Plan Assessment/Plan (1) NSTEMI, initial episode of care: PLAN: Continue present management. Status post thrombectomy and drug- eluting stent placement to RCA. (2) History of coronary artery stent placement: (3) Atherosclerosis of coronary artery of alutiiq heart without angina pectoris: QUALIFIERS: Coronary Disease-Associated Artery/Lesion type: alutiiq artery Qualified Code(s): I25.10 - Atherosclerotic heart disease of alutiiq coronary artery without angina pectoris (4) V tach: PLAN: Related to his HI and hyperkalemia. We will give him 40 mEq more of potassium chloride. He already received 40 mEq. We will stop the amiodarone and monitor him on telemetry. If he continues to have significant nonsustained V. tach or sustained V. tach after 48 hours of presentation despite normal electrolytes then he would benefit from LifeVest. Charges/Coding Visit Charges Inpatient E&M: 74559 Subs Hosp L2
[2022-04-01 15:23] LABS: Anion Gap 5 (5-15); BUN 13 mg/dL (7-18); BUN/Creat Ratio 9.9 RATIO (10-20); Calcium,Total 8.9 mg/dL (8.5-10.1); Chloride 111 mmol/L (98-107); Creatinine, Serum 1.31 mg/dL (0.70-1.30); EST Glomerular Filtration Rate 62 mL/min (>60); Est Glom Filt Rate - Afr Amer 75 mL/min (>60); Estimated Creatinine Clearance 76.51 ml/min; Glucose 105 mg/dL (74-106); Potassium 4.2 mmol/L (3.5-5.1); Sodium Level 143 mmol/L (136-145)
[2022-04-01] MEDS: Atorvastatin Calcium 80 MG Tablet PO (22:19)
[2022-04-01] MEDS: Metoprolol Tartrate 25 MG Tablet PO (22:19)
[2022-04-02 03:34] VITALS: PULSE 79
[2022-04-02 03:54] LABS: Absolute Lymphocyte Count 1.68 X10^3/uL (0.83-4.51); Absolute Neutrophil Count 6.8 X10^3/uL (2.0-7.7); Basophil# 0.03 X10^3/uL; Basophil% 0.3 % (0-1); Eosinophil# 0.17 X10^3/uL; Eosinophils% 1.8 % (0-5); Hematocrit 40.6 % (40-54); Hemoglobin 13.2 g/dL (13.0-16.5); Lymphocyte # 1.68 X10^3/ul (0.83-4.51); Mean Corp Hgb Conc 32.5 g/dL (32-36); Mean Corpuscular Hgb 28.3 pg (27.0-32.0); Mean Corpuscular Volume 86.9 fL (80-94); Mean Platelet Vol. 10.5 fl (6.2-12.0); Monocyte# 0.61 X10^3/uL; Monocyte% 6.5 % (0-10); NRBC Flagged by Analyzer 0 % (0-5); Neutrophil # 6.82 X10^3/uL (2.7-7.7); Neutrophil % 73.1 % (47-70); Platelet Count 170 K/mm3 (150-450); RBC Distribution Width CV 13.8 % (11.6-14.6); RBC Distribution Width SD 43.3 fl (35.1-43.9); Red Blood Count 4.67 M/mm3 (4.6-6.2); White Blood Count 9.3 K/mm3 (4.4-11.0)
[2022-04-02 04:15] VITALS: BP 115/86; PULSE 74; RESP 18; TEMP 36.7; O2SAT 97
[2022-04-02 04:41] LABS: ALB/GLOB Ratio 0.9 RATIO (0.9-2.4); AST(SGOT) 176 U/L (15-37); Alanine Aminotransfer ALT/SGPT 56 U/L (16-61); Albumin, Serum 3.1 g/dL (3.2-5.0); Alkaline Phosphatase 59 U/L (45-117); Anion Gap 5 (5-15); BUN 14 mg/dL (7-18); BUN/Creat Ratio 12.7 RATIO (10-20); Calcium,Total 8.6 mg/dL (8.5-10.1); Chloride 112 mmol/L (98-107); EST Glomerular Filtration Rate 76 mL/min (>60); Est Glom Filt Rate - Afr Amer 92 mL/min (>60); Estimated Creatinine Clearance 91.12 ml/min; Globulin 3.3 g/dL (2.2-4.2); Glucose 115 mg/dL (74-106); Protein, Total 6.4 g/dL (6.4-8.2); Sodium Level 142 mmol/L (136-145); Troponin-I HS 36101 pg/mL (3.0-78.0)
--- NOTE | 2022-04-02 05:36 | PCM.PN.HOSP ---
Subjective Subjective Patient with no recurrent episodes since evening prior of NSVT. Tolerated evening BP medications with changes although awaiting to have his current medications. Patient denies any episodes of chest discomfort or dyspnea. Discussed case with his drug safety data management specialist and reviewed overnight events with clearance for discharge with plan continuation of lisinopril 10 mg and metoprolol 25 twice daily. Patient denies fevers, chills, nausea, emesis, abdominal pain. Objective Data Objective Data Vital Signs: Vital Signs Temp Pulse Resp BP Pulse Ox 98.1 F 74 18 115/86 H 97 04/02/22 04:15 04/02/22 04:15 04/02/22 04:15 04/02/22 04:15 04/02/22 04:15 Oxygen Delivery Method Room Air Weight: 238 lb 15.697 oz Body Mass Index (BMI) 32.3 Intake & Output: Intake and Output for Last 24 Hours 03/31/22 04/01/22 04/02/22 23:59 23:59 23:59 Intake Total 654.48 / 654.48 900.64 / 1020.64 120 / 120 Balance 654.48 / 654.48 900.64 / 1020.64 120 / 120 Lab / Micro Data Result Diagrams: 04/02/22 03:48 04/02/22 03:48 Labs: Laboratory Results - last 24 hr 04/01/22 05:52: WBC 9.2, RBC 4.70, Hgb 13.3, Hct 40.4, MCV 86.0, MCH 28.3, MCHC 32.9, RDW Std Deviation 42.6, RDW Coeff of Nadege 13.6, Plt Count 206, MPV 10.9, Immature Gran % (Auto) 0.400, Neut % (Auto) 72.3 H, Lymph % (Auto) 18.2 L, [place] % (Auto) 7.3, Eos % (Auto) 1.5, Baso % (Auto) 0.3, Absolute Neuts (auto) 6.7, Absolute Lymphs (auto) 1.68, Nucleated RBC % 0 04/01/22 05:52: Sodium 142, Potassium 3.3 L, Chloride 111 H, Carbon Dioxide 24.0, Anion Gap 7, BUN 15, Creatinine 1.08, Estim Creat Clear Calc 92.81, Est GFR (MDRD) Af Amer 94, Est GFR (MDRD) Non-Af 78, BUN/Creatinine Ratio 13.9, Glucose 123 H, Calcium 8.6, Total Bilirubin 0.80, AST 285 H, ALT 58, Alkaline Phosphatase 60, Total Protein 6.4, Albumin 3.0 L, Globulin 3.4, Albumin/Globulin Ratio 0.9, Triglycerides 136, Cholesterol 146, LDL Cholesterol 84, VLDL Cholesterol 27, HDL Cholesterol 35 L 04/01/22 07:25: Troponin I High Sens 39358 H* 04/01/22 15:00: Sodium 143, Potassium 4.2, Chloride 111 H, Carbon Dioxide 27.0, Anion Gap 5, BUN 13, Creatinine 1.31 H, Estim Creat Clear Calc 76.51, Est GFR (MDRD) Af Amer 75, Est GFR (MDRD) Non-Af 62, BUN/Creatinine Ratio 9.9 L, Glucose 105, Calcium 8.9 04/02/22 03:48: WBC 9.3, RBC 4.67, Hgb 13.2, Hct 40.6, MCV 86.9, MCH 28.3, MCHC 32.5, RDW Std Deviation 43.3, RDW Coeff of Nadege 13.8, Plt Count 170, MPV 10.5, Immature Gran % (Auto) 0.300, Neut % (Auto) 73.1 H, Lymph % (Auto) 18.0 L, [place] % (Auto) 6.5, Eos % (Auto) 1.8, Baso % (Auto) 0.3, Absolute Neuts (auto) 6.8, Absolute Lymphs (auto) 1.68, Nucleated RBC % 0 04/02/22 03:48: Sodium 142, Potassium 4.0, Chloride 112 H, Carbon Dioxide 25.0, Anion Gap 5, BUN 14, Creatinine 1.10, Estim Creat Clear Calc 91.12, Est GFR (MDRD) Af Amer 92, Est GFR (MDRD) Non-Af 76, BUN/Creatinine Ratio 12.7, Glucose 115 H, Calcium 8.6, Total Bilirubin 0.70, AST 176 H, ALT 56, Alkaline Phosphatase 59, Troponin I High Sens 42801 H*, Total Protein 6.4, Albumin 3.1 L, Globulin 3.3, Albumin/Globulin Ratio 0.9 Physical Exam Narrative Physical Examination: General: Awake, alert, oriented x 3 and cooperative, laying in the PCU bed, denies any acute events, feeling well. Skin: Normal color, normal turgor, no icterus, no cyanosis. HEENT: AT/NC, EOMI, PERRLA, MMM. Lungs: CTA bilaterally, moderate effort, mild decrease BL bases, no rales, ronchi or wheezing. Heart: Currently regular rate and rhythm; no gallop, rub audible. Abdomen: Soft, obese, NTTP, ND, normal BS. Extremities: No cyanosis, clubbing, or edema. Neurological: Patient awake, alert, oriented as noted, cognitive function intact; pupils equally reactive to light and accommodation, cranial nerves II-XII grossly normal, moving all 4 extremities, no focal deficits, strength preserved. Psychiatric: Affect appears fatigued otherwise normal, no acute evidence of depressive or anxiety feelings. Assessment & Plan Assessment/Plan (1) NSTEMI, initial episode of care: PLAN: The patient is a 47 y/o M w/ PMHx: HTN, HLD, Obesity, Chew tobacco who presents to the [facility] ED on 03/31/22 with history of onset bilateral jaw discomfort in addition to chest discomfort with initially onset of discomfort in the TM joints however it persisted with eventual transition to his midsternal region prompting ED evaluation. #1. Chest Pain w/ Acute NSTEMI complicated by #2: EKG in ED w/ sinus rhythm with no acute evidence of ischemia, CXR w/ no acute cardiopulmonary finding, initial troponin 402. Patient admitted to the PCU, maintain on a monitored bed, serial enzymes obtained with initial 402--> 3246-->49,140-->04/02/22 36,101, decreasing, ECHO w/ EF 60%, no evidence of diastolic dysfunction, inferior basal hypokinesis, trivial MVI, Mag 2.2. Cardiology consulted and patient underwent 03/31/2022 cardiac catheterization with noted coronary disease with successful thrombectomy and drug-eluting stent placement to the mid RCA. Continue medical management w/ asa, Brilinta, BB, statin per cardiology direction; however, given low BP 04/01/22 d/c norvasc, decreased ACEI, continued BB 25 mg BID but per discussion with Cardiology which was tolerated. As noted #2, initially placed on amiodarone drip, once K corrected d/c with planned continued close observation with no recurrent events, thus per discussion with Cardiology patient cleared for discharge to home 04/02/22 with follow-up in 1 week with Cardiology PA to have re-evaluation early. #2. NSVT: Patient post-catheterization with overnight 03/31-04/01 NSVT bursts, up to near 60 beats. Patient initially placed on amiodarone drip, once K corrected d/c with planned continued close observation with no recurrent events, thus per discussion with Cardiology patient cleared for discharge to home 04/02/22 with follow-up in 1 week with Cardiology PA to have re-evaluation early. #3. Hypokalemia: Admission K+ 3.3, magnesium level normal, supplementation given, repeat level 04/01/22 evening K 4.2-->04/02/22 K 4.0, stable and resolved. #4. Hypertension: Continue home regimen including metoprolol, lisinopril, Norvasc with hold parameters as needed, PRN hydralazine. #5. Hyperlipidemia: High-dose atorvastatin added, FLP TG 136, T Chol 146, LDL 84, VLDL 27, HDL 35. #6. Obesity: Weight loss and lifestyle changes encouraged. #7. Chew tobacco: Will encourage tobacco cessation, NR if needed. #8. TAVO: CPAP q HS. #9. DVT prophylaxis: SCDs, lovenox. Charges/Coding Visit Charges Inpatient E&M: 56168 Subs Hosp L2
[2022-04-02 06:48] VITALS: PULSE 65
[2022-04-02] MEDS: Enoxaparin 40 MG/0.4 ML Syringe SC (07:03)
[2022-04-02 07:15] VITALS: O2SAT 96
[2022-04-02 07:29] VITALS: BP 112/81; PULSE 69; RESP 16; TEMP 36.7; O2SAT 97
[2022-04-02] MEDS: Lisinopril 10 MG Tablet PO (07:30)
[2022-04-02] MEDS: TICAGRELOR 90 MG TABLET PO (07:30)
[2022-04-02] MEDS: Aspirin E.C. 81 MG Tablet PO (07:30)
--- NOTE | 2022-04-02 07:30 | PCM.DC ---
Discharge Instructions Diet Discharge Diet: Low fat / Low cholesterol Activity Discharge Activity: - (See additional instructions.) May resume sexual activity in: - (See additional instructions.) Weight Bearing Status: Weight bearing as tolerated Dressing / Incision Call your doctor if your incision/area has: Continuous Slow Oozing, Sudden Increased Bleeding, Increased Pain/ Swelling, Increased Redness, Foul Smelling Discharge and Swelling at the incision site Call your doctor if you observe: Fever of 101 or Higher, Shortness of breath, Dizziness, Chest pain and Increased palpitations (irregular heartbeat) Follow Up Care Test Results: Test results from this visit will be discussed in further detail at your follow-up appointment, if applicable. Discharge Plan Admission Admit Date/Time: 03/31/22 10:33 Primary Reason for Your Visit: NSTEMI, NSVT Attending Provider: Jen Hidalgo Primary Care Provider: Ayanna Lentz Consulting Providers: Kishore Vazquez ; Sancho Ovalles Instructions Patient Instructions: Heart Attack Dc, Heart Attack Meds, Heart Attack Questions, Heart Attack: Back at Home, Heart Attack resuming Sex Additional Instructions / Restrictions: UNLESS OTHERWISE INSTRUCTED BY CARDIOLOGY PLEASE FOLLOWING THESE POST CARDIAC INTERVENTION RECOMMENDATIONS: Lifting: Must be less than 5 lbs for 5 days, No restrictions after 14 days Shower: Yes Climb stairs: Yes Bathing in tub or submerged water: No, until cleared per Cardiology at follow-up (call office if any concerns [phone] and may leave voicemail if after hours). Walkin minutes 3 times daily, increase as tolerated. Driving: Resume in 7 days Sexual activity: Resume in 14 days Regular activity: Resume 14 days Discharge Orders/Prescriptions Prescriptions: New Brilinta 90 mg Tablet 90 mg PO BID 30 Days Qty: 60 RF: 1 atorvastatin 80 mg Tablet 80 mg PO QHS 30 Days Qty: 30 RF: 1 aspirin 81 mg Tablet,Delayed Release (Dr/Ec) 81 mg PO BREAKFAST 30 Days Qty: 30 RF: 1 metoprolol tartrate 25 mg Tablet 25 mg PO BID 30 Days Qty: 60 RF: 1 Discontinued lisinopril 20 MG tablet 20 mg PO DAILY RF: 0 pravastatin 80 MG tablet 80 mg PO DAILY RF: 0 amlodipine 5 mg tablet 5 mg PO DAILY RF: 0 Referrals / Follow Up: Ayanna Lentz MD [Primary Care Provider] - (Follow-up within 3-5 days to review admission and new medications/changes.) Tiffanie Tesfaye, PA [PHYSICIAN ASSISTANT CLINICAL NURSE MANAGER] - (Please follow-up with Cardiology in 1 week. May see Cardiology PA and then will be established with Printing Table Hand in office.) Disposition Disposition (needs filled in before D/C Order can be placed): Home, Self Care
[2022-04-02 07:31] VITALS: PULSE 69
[2022-04-02] MEDS: Metoprolol Tartrate 25 MG Tablet PO (07:31)
--- NOTE | 2022-04-02 07:32 | NURSING ---
1000 medications given early per MD communication order.
--- NOTE | 2022-04-02 07:34 | DS.PCM_ITS ---
Providers Date of Admission: 03/31/22 Primary Care Physician: Dr. Ayanna Lentz MD Consultations 03/31/22 10:35 Consult: Cardiology Routine Consulting Provider: Kishore Vazquez Reason for Consult: NSTEMI EMERGENT Consult: No MD Notified: Yes Date Notified: 03/31/22 Time Notified: 10:35 Method of Notification: ED Physician Initiated Reason For Visit: NSTEMI Diagnosis Discharge Diagnosis (1) NSTEMI, initial episode of care: Status: Acute Code(s): I21.4 - Non-ST elevation (NSTEMI) myocardial infarction Medications at Discharge Home Medications aspirin 81 mg PO BREAKFAST 30 Days #30 tab 04/02/22 atorvastatin 80 mg PO QHS 30 Days #30 tab 04/02/22 metoprolol tartrate 25 mg PO BID 30 Days #60 tab 04/02/22 ticagrelor [Brilinta] 90 mg PO BID 30 Days #60 tab 04/02/22 Hospital Course Operations None Procedures 2-D Echocardiogram and Cardiac catheterization Summary of Care Provided Minutes Spent on Discharge: 35 Hospital Course: Discharge Diagnoses: #1. Chest Pain w/ Acute NSTEMI complicated by #2 (successful thrombectomy and drug-eluting stent placement to the mid RCA) #2. Episodes NSVT, post NSTEMI #3. Hypokalemia #4. Hypertension #5. Hyperlipidemia #6. Obesity #7. Chew tobacco #8. TAVO Discharge Summary: The patient is a 47 y/o M w/ PMHx: HTN, HLD, Obesity, Chew tobacco who presented to the [facility] ED on 03/31/22 with history of onset bilateral jaw discomfort in addition to chest discomfort with initially onset of discomfort in the TM joints however it persisted with eventual transition to his midsternal region prompting ED evaluation. EKG in ED w/ sinus rhythm with no acute evidence of ischemia, CXR w/ no acute cardiopulmonary finding, initial troponin 402. Patient admitted to the PCU, maintain on a monitored bed, serial enzymes obtained with initial 402--> 3246-->49,140-->04/02/22 36,101, decreasing, ECHO w/ EF 60%, no evidence of diastolic dysfunction, inferior basal hypokinesis, trivial MVI, Mag 2.2. Cardiology consulted and patient underwent 03/31/2022 cardiac catheterization with noted coronary disease with successful thrombectomy and drug-eluting stent placement to the mid RCA. Continue medical management w/ asa, Brilinta, BB, statin per cardiology direction; however, given low BP 04/01/22 d/c norvasc, decreased ACEI, continued BB 25 mg BID but per discussion with Cardiology which was tolerated. As noted #2, initially placed on amiodarone drip, once K corrected d/c with planned continued close observation with no recurrent events, thus per discussion with Cardiology patient cleared for discharge to home 04/02/22 with follow-up in 1 week with Cardiology PA to have re-evaluation early. Discharge Time: > 35 Minutes Weight / BMI Weight Weight: 238 lb 15.697 oz Body Mass Index (BMI) 32.3 ABG / Lab / Microbiology Data Result Diagrams: 04/02/22 03:48 04/02/22 03:48 Laboratory: Laboratory Results - last 24 hr 04/01/22 07:25: Troponin I High Sens 04110 H* 04/01/22 15:00: Sodium 143, Potassium 4.2, Chloride 111 H, Carbon Dioxide 27.0, Anion Gap 5, BUN 13, Creatinine 1.31 H, Estim Creat Clear Calc 76.51, Est GFR (MDRD) Af Amer 75, Est GFR (MDRD) Non-Af 62, BUN/Creatinine Ratio 9.9 L, Glucose 105, Calcium 8.9 04/02/22 03:48: WBC 9.3, RBC 4.67, Hgb 13.2, Hct 40.6, MCV 86.9, MCH 28.3, MCHC 32.5, RDW Std Deviation 43.3, RDW Coeff of Nadege 13.8, Plt Count 170, MPV 10.5, Immature Gran % (Auto) 0.300, Neut % (Auto) 73.1 H, Lymph % (Auto) 18.0 L, Coal % (Auto) 6.5, Eos % (Auto) 1.8, Baso % (Auto) 0.3, Absolute Neuts (auto) 6.8, Absolute Lymphs (auto) 1.68, Nucleated RBC % 0 04/02/22 03:48: Sodium 142, Potassium 4.0, Chloride 112 H, Carbon Dioxide 25.0, Anion Gap 5, BUN 14, Creatinine 1.10, Estim Creat Clear Calc 91.12, Est GFR (MDRD) Af Amer 92, Est GFR (MDRD) Non-Af 76, BUN/Creatinine Ratio 12.7, Glucose 115 H, Calcium 8.6, Total Bilirubin 0.70, AST 176 H, ALT 56, Alkaline Lenard sphatase 59, Troponin I High Sens 54595 H*, Total Protein 6.4, Albumin 3.1 L, Globulin 3.3, Albumin/Globulin Ratio 0.9 D/C Instructions Discharge Diet: Low fat / Low cholesterol May resume sexual activity in: - (See additional instructions.) Weight Bearing Status: Weight bearing as tolerated Call your doctor if your incision/area has: Continuous Slow Oozing, Sudden Increased Bleeding, Increased Pain/ Swelling, Increased Redness, Foul Smelling Discharge and Swelling at the incision site Call your doctor if you observe: Fever of 101 or Higher, Shortness of breath, Dizziness, Chest pain and Increased palpitations (irregular heartbeat) Meaningful Use Info Meaningful Use Diagnoses (Choose all that apply): AMI AMI/Post PCI/Angioplasty Aspirin given w/in 24hrs of arrival?: Yes ASA at discharge?: Yes Antiplatelet Therapy at Discharge:: Yes Statins at discharge?: Yes Tyler/ARB at discharge?: Yes Beta Idania at discharge?: Yes Done w/ Acute IA measure.: Yes Documented LVEF (%): 60 Discharge Plan Admission Admit Date/Time: 03/31/22 10:33 Primary Reason for Your Visit: NSTEMI, NSVT Attending Provider: Jen Hidalgo Primary Care Provider: Ayanna Lentz Consulting Providers: Kishore Vazquez ; Sancho Ovalles Instructions Patient Instructions: Heart Attack Dc, Heart Attack Meds, Heart Attack Questions, Heart Attack: Back at Home, Heart Attack resuming Sex Additional Instructions / Restrictions: UNLESS OTHERWISE INSTRUCTED BY CARDIOLOGY PLEASE FOLLOWING THESE POST CARDIAC INTERVENTION RECOMMENDATIONS: Lifting: Must be less than 5 lbs for 5 days, No restrictions after 14 days Shower: Yes Climb stairs: Yes Bathing in tub or submerged water: No, until cleared per Cardiology at follow-up (call office if any concerns [phone] and may leave voicemail if after hours). Walkin minutes 3 times daily, increase as tolerated. Driving: Resume in 7 days Sexual activity: Resume in 14 days Regular activity: Resume 14 days Discharge Orders/Prescriptions Prescriptions: New Brilinta 90 mg Tablet 90 mg PO BID 30 Days Qty: 60 RF: 1 atorvastatin 80 mg Tablet 80 mg PO QHS 30 Days Qty: 30 RF: 1 aspirin 81 mg Tablet,Delayed Release (Dr/Ec) 81 mg PO BREAKFAST 30 Days Qty: 30 RF: 1 metoprolol tartrate 25 mg Tablet 25 mg PO BID 30 Days Qty: 60 RF: 1 Discontinued lisinopril 20 MG tablet 20 mg PO DAILY RF: 0 pravastatin 80 MG tablet 80 mg PO DAILY RF: 0 amlodipine 5 mg tablet 5 mg PO DAILY RF: 0 Referrals / Follow Up: Ayanna Lentz MD [Primary Care Provider] - (Follow-up within 3-5 days to review admission and new medications/changes.) Tiffanie Tesfaye, PA [PHYSICIAN ROPER OPERATOR] - (Please follow-up with Cardiology in 1 week. May see Cardiology PA and then will be established with Lighthouse Keeper in office.) Disposition Disposition (needs filled in before D/C Order can be placed): Home, Self Care Charges/Coding Visit Charges Inpatient E&M: 86309 Disch Hosp
--- NOTE | 2022-04-02 10:00 | EKG12_ITS ---
Test Reason : POST STENT PLACM Blood Pressure : / mmHG Vent. Rate : 096 BPM Atrial Rate : 096 BPM P-R Int : 182 ms QRS Dur : 090 ms QT Int : 360 ms P-R-T Axes : 059 004 079 degrees QTc Int : 454 ms Normal sinus rhythm Inferior infarct , age undetermined Abnormal ECG When compared with ECG of 31-MAR-2022 09:51, MANUAL COMPARISON REQUIRED, DATA IS UNCONFIRMED Confirmed by CAROLE DOWD, ANDREY ([id number]), publication editor MAXI SIMMONS ([id number]) on 04/03/2022 12:57:11 PM Referred By: JESÚS Confirmed By:ANDREY LAM MD
== END 2022-04-02 13:17 | disposition home or self-care (01) | DRG 247 ==
LOC: ED 09:35 → PCU 20:22
PROVIDERS: Admitting Provider Internal Medicine; Emergency Provider Student in an Organized Health Care Education/Training Program; PCP Internal Medicine; Visit Provider Family Medicine
DX: I21.4 Non-ST elevation (NSTEMI) myocardial infarction (principal); I47.2 Ventricular tachycardia; F17.220 Nicotine dependence, chewing tobacco, uncomplicated; G47.33 Obstructive sleep apnea (adult) (pediatric); I10 Essential (primary) hypertension; E78.5 Hyperlipidemia, unspecified; E87.6 Hypokalemia; I25.10 Atherosclerotic heart disease of native coronary artery without angina pectoris; Z79.899 Other long term (current) drug therapy; E66.9 Obesity, unspecified; Z68.32 Body mass index [BMI] 32.0-32.9, adult
CPT/HCPCS: 36415; 71045; 80048; 80053; 80061; 83735; 84484; 85025; 85610; 85730; 92928; 93005; 93306; 93454; 93458; 99152; 99153; 99285; C1757; C1874; J7030; J7040; Q9957; Q9967; A4216; C1725; C1769; C1887; C1894; C8929; C9600; J1327

== ENCOUNTER → 2025-05-11 | Outpatient (CLI) | payer OTHER, SELFPAY | END | disposition home or self-care (01) | PROVIDERS: PCP Internal Medicine; Referring Provider Nurse Practitioner Family; Visit Provider Nurse Practitioner Family | DX: I48.0 Paroxysmal atrial fibrillation (principal); I48.92 Unspecified atrial flutter; R00.1 Bradycardia, unspecified; R00.0 Tachycardia, unspecified; R00.2 Palpitations | CPT/HCPCS: 93225; 93226 ==